=== PATIENT | male | born 1995 | race Caucasian/White ===

== ENCOUNTER 2017-03-23 14:15 | Emergency (ER) | payer OTHER ==
[~2017-03-23] VITALS: Ht 185.4 cm; Wt 80.0 kg
[~2017-03-23 14:15] MED LIST: AMOX500T PO; OFLO.3%A LEFT EAR
[2017-03-23 14:24] VITALS: BP 115/72; PULSE 82; RESP 16; TEMP 98.2; O2SAT 99
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
== END 2017-03-23 15:56 | disposition home or self-care (01) ==
LOC: NEPD 14:15
DX: S93.402A Sprain of unspecified ligament of left ankle, initial encounter (principal); S90.512A Abrasion, left ankle, initial encounter; V13.4XXA Pedal cycle driver injured in collision with car, pick-up truck or van in traffic accident, initial encounter; Y93.55 Activity, bike riding
CPT/HCPCS: 73590; 73610; 99283; E0113